=== PATIENT | male | born 1990 | race African-American/Black ===

== ENCOUNTER 2016-12-02 14:57 | Emergency (ER) | payer MEDICAID ==
[~2016-12-02] VITALS: Ht 180.3 cm; Wt 54.4 kg
[2016-12-02 15:10] VITALS: BP 126/70
== END 2016-12-02 16:36 | disposition left against medical advice (07) ==
LOC: ER 14:59
DX: R07.9 Chest pain, unspecified (principal)
CPT/HCPCS: 93005; 99283; A4606; Z7610